=== PATIENT | male | born 1985 | race Native Hawaiian/Other Pacific Islander ===

== ENCOUNTER 2016-10-29 22:03 | Emergency (ER) | payer OTHER ==
[~2016-10-29] VITALS: Ht 188 cm; Wt 2.8 kg
[2016-10-29] MEDS ORDERED: DIVA500T2 OR (22:17)
[2016-10-29] MEDS ORDERED: PAXIL40 MG PO (22:17)
[2016-10-29] MEDS ORDERED: REMERON30 MG PO (22:18)
[2016-10-29] MEDS ORDERED: HYDROXYZ PAM100 MG PO (22:18)
[2016-10-29] MEDS ORDERED: HYDR50CA21 PO ×2 (22:22→22:23)
== END 2016-10-30 00:12 | disposition home or self-care (01) ==
LOC: ED 22:03
DX: R07.89 Other chest pain (principal)
CPT/HCPCS: 36415; 82550; 82553; 84484; 93005; 99283